=== PATIENT | female | born 1970 | race Caucasian/White ===

== ENCOUNTER 2017-10-29 09:56 | Emergency (ER) | payer BC ==
[2017-10-29] MEDS: SOD CHLORIDE 0.9% 1,000 ML IV (10:51)
[2017-10-29] MEDS: KETOROLAC 60 MG INJ IM (10:52)
[2017-10-29] MEDS: DIPHENHYDRAMINE 50 MG INJ IV (10:52)
[2017-10-29] MEDS: METOCLOPRAMIDE 10 MG INJ IV (10:52)
[2017-10-29 11:00] LABS: ADD MAN DIFF? NO
[2017-10-29] MEDS: KETOROLAC 30 MG INJ IV (11:00)
[2017-10-29 11:01] LABS: WHITE BLOOD COUNT 8.1 10^3/ul (4.8-10.8)
[2017-10-29 11:01] LABS: BASOPHIL # 0.1 10^3/ul (0.0-0.1); BASOPHILS % 0.6 % (0.0-2.0); EOSINOPHILS # 0.2 10^3/ul (0.0-0.5); EOSINOPHILS % 2.8 % (0.0-7.0); HEMATOCRIT 43.6 % (37.0-47.0); HEMOGLOBIN 14.6 g/dl (12.0-16.0); LYMPHOCYTES # 1.8 10^3/ul (0.8-2.9); LYMPHOCYTES % 21.9 % (15.0-51.0); MEAN CORPUSCULAR HEMOGLOBIN 31.7 pg (29.0-33.0); MEAN CORPUSCULAR HGB CONC 33.5 g/dl (32.0-37.0); MEAN CORPUSCULAR VOLUME 94.6 fl (82.0-101.0); MEAN PLATELET VOLUME 10.2 fl (7.4-10.4); MONOCYTE # 0.5 10^3/ul (0.3-0.9); MONOCYTES % 6.1 % (0.0-11.0); NEUTROPHIL # 5.5 10^3/ul (1.6-7.5); NEUTROPHILS % 68.4 % (39.0-77.0); PLATELET COUNT 288 10^3/UL (140-415); RED BLOOD COUNT 4.61 10^6/ul (4.20-5.40); RED CELL DISTRIBUTION WIDTH 12.4 % (11.5-14.5)
== END 2017-10-29 13:57 | disposition home or self-care (01) ==
LOC: FTE 09:56
DX: G43.909 Migraine, unspecified, not intractable, without status migrainosus (principal); R04.2 Hemoptysis; F17.210 Nicotine dependence, cigarettes, uncomplicated; R42 Dizziness and giddiness
CPT/HCPCS: 70450; 70486; 71045; 81025; 85025; 96374; 96375; 99285-25